=== PATIENT | female | born 1925 | race Caucasian/White ===

== ENCOUNTER 2016-09-12 08:24 | Day surgery (SDC) | payer MEDICARE, BC ==
[~2016-09-12 08:24] MED LIST: ACETAMINOPHEN 1000MG/100 ML PREMIX IV ONE; CEFAZOLIN 2 Gram 50 ML IVPB ONE
[2016-09-12 08:39] LABS: BASO % 2.1 % (0-6); EOS % 11.8 % (0-6); GRAN % 62.5 % (47-80); HEMATOCRIT 42.1 % (35.0-47.0); HEMOGLOBIN 13.9 gm/dl (11.6-16.0); LYMPH % 15.3 % (16-45); MEAN CELL VOLUME 93.1 fl (81-97); MEAN CORPUSCULAR HEMOGLOBIN 30.8 pg (27-33); MEAN PLATELET VOLUME 11.5 fl (7.4-10.4); MONO % 8.3 % (0-9); PLATELET COUNT 248 K/uL (130-400); RED BLOOD COUNT 4.52 M/uL (3.80-5.40); RED CELL DISTRIBUTION WIDTH 14.8 % (11.5-14.5); WHITE BLOOD COUNT W/O DIFF 7.5 K/uL (4.2-12.2)
[2016-09-12 08:50] LABS: ANION GAP 7.5 (7-16); BLOOD UREA NITROGEN 22 mg/dL (7-17); CARBON DIOXIDE 29.5 mmol/L (22-30); CREATININE 0.8 mg/dL (0.52-1.04); EST GLOMERULAR FILTRATION RATE > 60 ml/min; GLUCOSE,RANDOM 99 mg/dL (70-110)
[2016-09-12] MEDS ORDERED: GLYCOPYRROLATE 0.2 MG/ML ML IV ONE (14:00)
[2016-09-12] MEDS ORDERED: EPHEDRINE SULFATE 50 MG/ML ML IV ONE (14:00)
[2016-09-12] MEDS ORDERED: FENTANYL PF 100MCG/2ML VIAL IV ONE (14:00)
[2016-09-12] MEDS ORDERED: SUCCINYLCHOLINE 20 MG/ML 10ML IVP ONE (14:00)
[2016-09-12] MEDS ORDERED: PROPOFOL 10 MG/ML VIAL IV ONE (14:00)
[2016-09-12] MEDS ORDERED: SEVOFLURANE 250 ML INH ONE (14:00)
[2016-09-12] MEDS ORDERED: MIDAZOLAM HCL 2MG/2ML VIAL IV ONE (14:00)
[2016-09-12] MEDS ORDERED: ROCURONIUM BROMIDE 50MG/5ML VIAL IV ONE (14:00)
[2016-09-12] MEDS ORDERED: ONDANSETRON HCL IV 4 MG/2 ML VIAL IVP ONE (14:00)
[2016-09-12] MEDS ORDERED: NEOSTIGMINE 1 MG/1 ML,10ML VIAL IV ONE (14:00)
[2016-09-12] MEDS ORDERED: HYDROMORPHONE HCL 2 MG/ML VIAL IV ONE (15:00)
[2016-09-12] MEDS ORDERED: HYDROCODONE/APAP 5/325MG TABLET PO ONE (15:00)
[2016-09-12] MEDS ORDERED: BUPIVACAINE 0.25% W/EPI MPF 30ML VIAL IVP ONE (15:00)
--- NOTE | 2016-09-15 11:18 | Operative Note ---
DATE OF SURGERY: 09/12/2016 Surgeon Blake Perez DO PREOPERATIVE DIAGNOSES: 1. Recurrent back mass. 2. Incarcerated umbilical hernia. OPERATION: Excision of back mass measuring 13 x 8 cm down to the fascia and open umbilical herniorrhaphy with mesh. Indication: The patient is an 89-year-old female who presented to the clinic with pain both in her periumbilical region as well as back. Due to her age, we did discuss nonoperative treatment. However, the pain was getting worse. Therefore, she desired surgical intervention. Risks include, but are not limited to bleeding, infection, acute and chronic pain, recurrence, formation on her back and she understood this fully. PROCEDURE: Thereafter, consent was signed, questions answered. She was taken to the operating room and placed in a supine position. Generalized anesthesia was administered per department of anesthesia. Adequate timeout performed. She did receive preoperative antibiotic. At this time she was rotated into a right lateral position. Her back was prepped and draped in sterile fashion. The area around the mass was anesthetized with a total of 8 mL of 0.25% Sensorcaine and epinephrine. A 6 cm incision was made. This was carried down to the capsule of a very large lipoma. This was dissected free from the underlying back musculature with cautery. This did measure 13 x 8 cm down to the fascia. Hemostasis was noted. I did at this time place a #7 flat Natan-Hernandez drain and brought this out through a separate stab incision. The drain was suture with 3-0 nylon. The wound was closed with 3-0 and 4-0 Vicryl. Attention was now turned to the right side where she was rotated to the supine position. Her abdomen was prepped and draped in sterile fashion. The curvilinear infraumbilical region was anesthetized with a total of 4 mL of 0.25% Sensorcaine with epinephrine. A 7 cm curvilinear incision was made. This was carried down to a large hernia sac. The umbilical skin was dissected off the cephalad portion of the hernia sac. Clean circumferential fascial edges were obtained. The neck of the hernia was scored. The sac was then scored, amputated, and passed off the field. This hernia did contain incarcerated omentum as well as transverse colon. This was reduced back into the peritoneal cavity. The hernia itself measured about 3.5 cm. This was partially closed primarily on the edges. In the middle of this hernia which measured about 1 cm, an 8 cm Ventralight mesh was obtained. This was sutured in with 2-0 Vicryl to the anterior rectus fascia. Wound is irrigated. The skin was tacked back down to the fascia with 3-0 Vicryl. The skin was closed with 4-0 Vicryl. She was taken to the recovery room in satisfactory condition. FINDINGS AT THE TIME OF SURGERY: Incarcerated umbilical hernia containing omentum and transverse colon. CC: Dr. Imani KABA
== END 2016-09-12 14:15 | disposition home or self-care (01) ==
LOC: SUR 08:24
PROVIDERS: ATTEND Surgery
DX: K42.9 Umbilical hernia without obstruction or gangrene (principal); D17.1 Benign lipomatous neoplasm of skin and subcutaneous tissue of trunk; I10 Essential (primary) hypertension; E78.00 Pure hypercholesterolemia, unspecified; Z79.01 Long term (current) use of anticoagulants
CPT/HCPCS: 80048; 85025; J0330; J2405; J2710